=== PATIENT | female | born 1985 | race Caucasian/White ===

== ENCOUNTER 2022-07-08 09:48 | Emergency (ER) | payer OTHER, SELFPAY ==
[2022-07-08 10:01] VITALS: BP 127/92; PULSE 100; RESP 16; TEMP 37.2; O2SAT 99
--- NOTE | 2022-07-08 10:33 | ED.EYEPROB ---
HPI - Eye Problem General Chief complaint: Eye Problems Stated complaint: kulwant eye redness/pain/swelling Time Seen by Provider: 07/08/22 10:33 Source: patient Mode of arrival: ambulatory Limitations: no limitations History of Present Illness HPI Narrative: 37-year-old female presenting for complaint of bilateral eye swelling and discomfort. She states 2 nights ago left eye was swollen and itchy after dying her hair. She used allergy eyedrops but woke this morning with right eye also swollen and both eyes crusted shut. She states she feels like she has sand in the eyes. She denies vision changes, headache, dizziness or photophobia. Denies sick contacts. She does not wear contact lenses. chief complaint: eye pain Related Data Allergies Allergy/AdvReac Type Severity Reaction Status Date / Time codeine Allergy Unknown Verified 07/08/22 10:12 Review of Systems Review of Systems: CONSTITUTIONAL: Denies body aches, fever, chills EYES:Endorses swelling, redness and pain to eyes ENT: Denies rhinorrhea, congestion, sore throat, or otalgia. CARDIOVASCULAR: Denies chest pain, palpitations RESPIRATORY: Denies cough or dyspnea. GASTROINTESTINAL: Denies abdominal pain, nausea, vomiting, or diarrhea. SKIN: Denies rash, itching, or wounds. MUSCULOSKELETAL: Denies back pain, joint pain, or myalgia. NEUROLOGIC: Denies headache, numbness, tingling, or weakness. All systems reviewed & are unremarkable except as noted in HPI and below PMFSH Comments At time of signature, I have reviewed and agree with nursing past medical, surgical, social and family history unless otherwise noted. Please see nursing chart for further information. There is no relevant family history pertinent to the presenting complaint Exam Narrative: GENERAL: Well-appearing HEAD: Normocephalic, atraumatic. EYES: bilateral conjunctival injection, periorbital eye swelling without occlusion. Moderate bilateral clear drainage. PERRLA EOMI. Lid eversion showed no FB. ENT: Mucous membranes pink and moist. No rhinorrhea. TMs normal bilaterally. Throat normal. Uvula midline. CHEST: Clear to auscultation. HEART: Regular rate and rhythm. ABDOMEN: Soft, nontender, nondistended SKIN: Warm, dry, no rash. Normal skin turgor. NEURO: No focal deficits. Alert and oriented x3 PSYCH: Normal affect. Course Course Emergency Course: Patient is aware of diagnosis, understands and agrees to treatment plan. Anticipatory guidance given. Patient agrees to follow-up as directed and is aware of reasons to seek care at the emergency department. Portions of this record may have been created with voice recognition software Level of Care: Express Care Visit Vital Signs Vital signs: Vital Signs Temperature 98.9 F 07/08/22 10:01 Pulse Rate 100 07/08/22 10:01 Respiratory Rate 16 07/08/22 10:01 Blood Pressure 127/92 H 07/08/22 10:01 Pulse Oximetry 99 07/08/22 10:01 Oxygen Delivery Room Air 07/08/22 10:01 Temperature 98.9 F 07/08/22 10:01 Pulse Rate 100 07/08/22 10:01 Respiratory Rate 16 07/08/22 10:01 Blood Pressure 127/92 H 07/08/22 10:01 Pulse Oximetry 99 07/08/22 10:01 Oxygen Delivery Room Air 07/08/22 10:01 MDM - Eye Problem MDM Narrative Medical decision making narrative: Advised supportive measures and signs/symptoms to go to the ER. She will add Zyrtec/Benadryl and monitor symptoms. Pt is appropriate for outpt treatment and f/u. Differential Diagnosis Differential diagnosis: Likely corneal abrasion, conjunctivitis, acute iritis and other Discharge Plan Discharge Clinical Impression: Conjunctivitis Patient Disposition: Home, Self-Care Condition: Stable Additional Instructions: Avoid touching or rubbing your eye. Use over the counter lubricating eye drops as needed for irritation Use a warm or cool washcloth on your eye for comfort Use eyedrops as directed - you are contagious for 24 hours after starting the
== END 2022-07-08 10:46 | disposition home or self-care (01) ==
PROVIDERS: Emergency Provider Nurse Practitioner Family; PCP Family Medicine
DX: H10.9 Unspecified conjunctivitis (principal)
CPT/HCPCS: 99203; G0463